=== PATIENT | female | born 1950 | race Caucasian/White ===

== ENCOUNTER → 2019-08-19 | Outpatient (CLI) | payer MEDICARE ==
[2014-05-07 15:16] VITALS: BP 138/82
[~2019-08-19] MED LIST: GLUC1CAP48 PO; METO-269 PO; MULT1TAB97 PO; UBID30CA9 PO
--- NOTE | 2019-08-19 13:44 | RAD ---
DATE: 08/19/2019 EXAM: MAMMO MEGHAN DIAG RT HISTORY: Left mastectomy. COMPARISON: 07/16/2018 mammographic exams This study was interpreted with the benefit of Computerized Aided Detection (CAD). Breast Density: HETERO The breast parenchyma is heterogenously dense, which could reduce sensitivity of mammography. Breast parenchyma level C. FINDINGS: No mass, suspicious calcification, or distortion. IMPRESSION: Stable and benign BI-RADS CATEGORY: 1 NEGATIVE RECOMMENDED FOLLOW-UP: 12M 12 MONTH FOLLOW-UP PQRS compliance statement: Patient information was entered into a reminder system with a target due date in one year for the next mammogram. Mammography is a sensitive method for finding small breast cancers, but it does not detect them all and is not a substitute for careful clinical examination. A negative mammogram does not negate a clinically suspicious finding and should not result in delay in biopsying a clinically suspicious abnormality. "Our facility is accredited by the [employer] Mammography [employer]."
== END | disposition home or self-care (01) ==
LOC: MAMMO 08:38
PROVIDERS: ATTEND Internal Medicine Hematology & Oncology
DX: C50.412 Malignant neoplasm of upper-outer quadrant of left female breast (principal); Z17.0 Estrogen receptor positive status [ER+]; Z90.89 Acquired absence of other organs
CPT/HCPCS: 77065; G0279; 77061

== ENCOUNTER → 2020-08-03 | Outpatient (CLI) | payer MEDICARE ==
[2014-05-07 15:16] VITALS: BP 138/82
--- NOTE | 2020-08-03 11:27 | RAD ---
DATE: 08/03/2020 10:09 AM EXAM: MAMMO MEGHAN DIAG RT, BREAST RIGHT HISTORY: Diagnostic surveillance. Personal history of left breast cancer 2018 status post left mastectomy. COMPARISON: Screening mammogram of 07/16/2018, left breast ultrasound of 07/16/2018, bilateral breast MRI of 07/23/2018, ultrasound-guided left breast core needle biopsy of 07/25/2018 and right diagnostic mammogram of 08/19/2019. TECHNIQUE: CC and MLO views of the right breast were performed. Breast tomosynthesis was performed of the right breast in CC and MLO projections. This study was interpreted with the benefit of Computerized Aided Detection (CAD).: Whole breast right breast ultrasound was also performed. FINDINGS: Breast Density: SCATTERED The breast parenchyma shows scattered fibroglandular densities. Breast parenchyma level B No suspicious masses, microcalcifications or architectural distortion is present to suggest malignancy. The visualized axilla is unremarkable. Ultrasound of the right breast revealed no suspicious sonographic findings. Sonographic survey of the right axilla revealed no adenopathy. IMPRESSION: No mammographic evidence of malignancy. BI-RADS CATEGORY: 1 NEGATIVE RECOMMENDED FOLLOW-UP: 12M 12 MONTH FOLLOW-UP Annual screening mammography is recommended, unless clinically indicated sooner based on symptoms or change in physical exam. PQRS compliance statement: Patient information was entered into a reminder system with a target due date for the next mammogram. Mammography is a sensitive method for finding small breast cancers, but it does not detect them all and is not a substitute for careful clinical examination. A negative mammogram does not negate a clinically suspicious finding and should not result in delay in biopsying a clinically suspicious abnormality. "Our facility is accredited by the [employer] Mammography [employer]."
== END | disposition home or self-care (01) ==
LOC: MAMMO 10:00
PROVIDERS: ATTEND Internal Medicine Hematology & Oncology
DX: R92.2 Inconclusive mammogram (principal); Z85.3 Personal history of malignant neoplasm of breast
CPT/HCPCS: 76641; 77065; G0279; 77061

== ENCOUNTER → 2021-08-23 | Outpatient (CLI) | payer MEDICARE, OTHER ==
[2014-05-07 15:16] VITALS: BP 138/82
--- NOTE | 2021-08-23 17:45 | KCIC ---
2-D and 3-D, digital tomography, Diagnostic Mammogram RIGHT, unilateral History: Personal history of right breast carcinoma with mastectomy. Technique: Bilateral 2-D and 3d digital tomographic views were obtained. CAD - computer aided dete ction was utilized. Comparison: Mammograms from 08/03/2020 and 08/19/2019. Findings: Breast Tissue Density B : There are scattered areas of fibroglandular density There are no suspicious masses, malignant appearing calcifications, or areas of architectural distort ion. IMPRESSION: Negative right mammogram. ASSESSMENT: BI-RADS 1. Negative. RECOMMENDATION: Routine annual screening mammograms. The patient was given results at the time of the exam and will receive a letter with the results in t he mail. Patient information will be entered into the mammography reminder system with a target recal l date for the next mammogram. A reminder letter will be generated. Electronically signed by: Kimberly Neal MD (08/23/2021 5:42 PM) [email or web address]
--- NOTE | 2021-08-23 17:46 | KCIC ---
Procedure: Right breast ultrasound, complete INDICATION: Personal history of left breast carcinoma with mastectomy. Physician requests screening u ltrasound. All 4 quadrants, retroareolar region, and the axilla were evaluated. FINDINGS: No suspicious cystic or solid breast mass is seen. There is no shift of axillary adenopathy . IMPRESSION: Negative right breast ultrasound. ASSESSMENT: BI-RADS 1. Negative exam. Recommendations: Routine annual screening mammograms. Electronically signed by: Kimberly Neal MD (08/23/2021 5:44 PM) [email or web address]
== END ==
LOC: KCIC MAMMO 12:50
PROVIDERS: ATTEND Internal Medicine Hematology & Oncology
DX: C50.412 Malignant neoplasm of upper-outer quadrant of left female breast (principal); Z17.0 Estrogen receptor positive status [ER+]
CPT/HCPCS: 76641; 77065; G0279; 77061